=== PATIENT | male | born 1980 | race Caucasian/White ===

== ENCOUNTER 2020-06-02 06:21 | Emergency (ER) | payer OTHER ==
[~2020-06-02] VITALS: Ht 175.3 cm; Wt 68.2 kg
[2020-06-02 06:32] VITALS: BP 149/91
[2020-06-02] MEDS: IV NORMAL SALINE 1,000ML 1,000 ML IV ONE ×3 (06:44→08:06)
[2020-06-02] MEDS: ONDANSETRON PF 4 MG/2 ML VIAL. IVP ONE ×2 (06:44→07:27)
--- NOTE | 2020-06-02 07:11 | PHYS DOC ---
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 Reports his daughter has been hospitalized and local friends and family have been coming over and assisting by providing meals. States a meal was brought for him and his family yesterday evening, and unknown local [employer] restaurant and patient reports being the only one eating the dish that consisted of bread stick and tortellini pasta. Patient ate at approximately 1800 hrs. and approximately 6 hours later at 0030 patient woke up with extreme nausea and abdominal cramping, shortly afterwards he started experiencing sever al episodes of nonbloody nonbilious emesis and looser stools than usual. Patient reports having numerous episodes of both emesis and diarrhea since onset. States he started developing abdominal cramping that was more severe than onset this morning which concerned him prompting him to come in for evaluation. As mention, patient is healthy, no known medical diagnoses, no prior surgeries, does not take any medications on a daily basis. Admits having x1 fever of 101 that was measured several hours ago but has since resolved without intervention Review of Systems Review of Systems Fourteen body systems of review of systems have been reviewed. See HPI for pertinent positives and negative responses, other house all other systems are negative, non-pertinent or non-contributory Current Medications Current Medications Current Medications Medications (Trade) Dose Ordered Sig/Jolene Start Time Stop Time Status Last Admin Dose Admin Ondansetron HCl (Zofran) 4 mg 1X ONCE 06/02/20 06:45 06/02/20 06:46 DC 06/02/20 06:44 4 MG Sodium Chloride 1,000 ml @ 1,000 mls/hr 1X ONCE 06/02/20 06:45 06/02/20 07:44 06/02/20 06:44 1,000 MLS/HR Allergies Allergies Allergies Coded Allergies Type Severity Reaction Last Updated Verified No Known Drug Allergies 06/02/20 No Physical Exam Physical Exam Constitutional: Well developed, well nourished, no acute distress, non-toxic appearance. Clinically dehydrated HENT: Normocephalic, atraumatic, bilateral external ears normal, oropharynx dry, no oral exudates, nose normal. Eyes: PERRLA, EOMI, conjunctiva normal, no discharge. Neck: Normal range of motion, no tenderness, supple, no stridor. Cardiovascular: Tachycardic, sinus rhythm, no murmurs rubs or gallops Lungs & Thorax: Bilateral breath sounds clear to auscultation Abdomen: Bowel sounds normal, soft, grossly tender to palpation with no guarding and no rebound, no masses, no pulsatile masses. Nonsurgical abdomen, no peritoneal signs Skin: Warm, dry, no erythema, no rash. Back: No tenderness, no CVA tenderness. Extremities: No tenderness, no cyanosis, no clubbing, ROM intact, no edema. Neurologic: Alert and oriented X 3, grossly normal motor & sensory function, no focal deficits noted. Psychologic: Affect normal, judgement normal, mood normal. Current Patient Data Vital Signs Vital Signs Date Time Temp Pulse Resp B/P (MAP) Pulse Ox O2 Delivery O2 Flow Rate FiO2 06/02/20 06:32 97.8 107 18 149/91 (110) 96 Room Air Lab Results Laboratory Tests Test 06/02/20 06:45 Sodium Level 142 mmol/L Potassium Level 4.3 mmol/L Chloride Level 105 mmol/L Carbon Dioxide Level 28 mmol/L Anion Gap 9 Blood Urea Nitrogen 17 mg/dL Creatinine 1.0 mg/dL Estimated GFR (Cockcroft-Gault) 84.1 BUN/Creatinine Ratio 17 Glucose Level 148 mg/dL Calcium Level 8.9 mg/dL Total Bilirubin 0.8 mg/dL Aspartate Amino Transf (AST/SGOT) 25 U/L Alanine Aminotransferase (ALT/SGPT) 22 U/L Alkaline Phosphatase 64 U/L Troponin I Quantitative < 0.017 ng/mL Total Protein 6.8 g/dL Albumin 3.7 g/dL Albumin/Globulin Ratio 1.2 Current Medications Medications (Trade) Dose Ordered Sig/Jolene Route PRN Reason Start Time Stop Time Status Last Admin Dose Admin Sodium Chloride 1,000 ml @ 1,000 mls/hr 1X ONCE IV 06/02/20 06:45 06/02/20 07:44 DC 06/02/20 06:44 Ondansetron HCl (Zofran) 4 mg 1X ONCE IVP 06/02/20 06:45 06/02/20 06:46 DC 06/02/20 06:44 Sodium Chloride 1,000 ml @ 1,000 mls/hr 1X ONCE IV 06/02/20 07:15 06/02/20 08:14 DC 06/02/20 07:30 Ondansetron HCl (Zofran) 4 mg 1X ONCE IVP 06/02/20 07:15 06/02/20 07:18 DC 06/02/20 07:27 Dicyclomine HCl (Bentyl) 10 mg 1X ONCE IM 06/02/20 08:00 06/02/20 08:01 DC 06/02/20 08:00 Sodium Chloride 1,000 ml @ 1,000 mls/hr 1X ONCE IV 06/02/20 08:15 06/02/20 09:14 06/02/20 08:06 EKG EKG EKG ordered and interpreted by myself at 0724 hrs. as sinus rhythm at 95 bpm, unremarkable intervals, no axis deviation, no acute ischemic findings, no STEMI Radiology/Procedures Radiology/Procedures [] Heart Score C/O Chest Pain: No Risk Factors: Risk Factors: DM, Current or recent (<one month) smoker, HTN, HLP, family history of CAD, obesity. Risk Scores: Risk Factors: DM, Current or recent (<one month) smoker, HTN, HLP, family history of CAD, obesity. Course & Med Decision Making Course & Med Decision Making Tachycardic otherwise hemodynamically stable patient with history concerning for gastroenteritis. Physical exam nonconcerning and nonemergent findings, nonacute abdomen Comprehensive ER work-up obtained and nonconcerning. IV fluid resuscitation wit h a total of x3 L normal saline administered given gross volume loss from emesis and ongoing diarrhea. Nausea and abdominal pain improved with 8 mg Zofran and 10 mg IM Bentyl Patient reexamined several times throughout ER visit with improvement in symptom s. Feels he is safe to go home to continue supportive care. Educated patient on supportive care practices, he will be going home with Rx Zofran and Bentyl Strict return precautions discussed with good understanding by patient. All questions and concerns addressed prior to ER departure in improved condition [place] Disclaimer Dragon Disclaimer This electronic medical record was generated, in whole or in part, using a voice recognition dictation system. Departure Departure: Impression: Primary Impression: Nausea, vomiting, and diarrhea Disposition: 01 DC HOME SELF CARE/HOMELESS Condition: IMPROVED Referrals: PCP,UNKNOWN (PCP) Patient Instructions: Nausea and Vomiting Additional Instructions: You were seen for nausea, vomiting, and diarrhea. You most likely have a viral gastroenteritis which should resolve in the next few days to a week. You should return to the ED if you develop abdominal pain, fever > 100.3, black/bloody stools, black/bloody vomiting, cannot keep water ingested, or any other new or concerning symptoms. Make sure to drink plenty of fluids and advance your diet slowly. It was a pleasure to take care of you and I wish you the best going forward Scripts Dicyclomine Hcl (DICYCLOMINE HCL) 20 Mg Tablet 1 TAB PO QID for NAUSEA for 10 Days, #40 TAB Prov: PREETHI POSEY DO 06/02/20 Ondansetron Hcl (ZOFRAN) 4 Mg Tablet 1 TAB PO Q6-8HRS PRN for NAUSEA, #30 TAB Prov: PREETHI POSEY DO 06/02/20 PREETHI POSEY DO Jun 02, 2020 07:11
[2020-06-02 07:16] LABS: CALCIUM 8.9 mg/dL (8.5-10.1); GFR 84.1; POTASSIUM 4.3 mmol/L (3.5-5.1)
[2020-06-02 07:21] LABS: ALBUMIN 3.7 g/dL (3.4-5.0); ALBUMIN/GLOBULIN RATIO 1.2 (1.0-1.7); TOTAL BILIRUBIN 0.8 mg/dL (0.2-1.0); TOTAL PROTEIN 6.8 g/dL (6.4-8.2)
[2020-06-02] MEDS: DICYCLOMINE 20 MG/2 ML VIAL. IM ONE (08:00)
--- NOTE | 2020-06-02 08:06 | EKG ---
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
[2020-06-02] MEDS ORDERED: DICY20TA3 PO (08:40)
[2020-06-02] MEDS ORDERED: ONDA4TAB7 PO (08:40)
== END 2020-06-02 08:46 | disposition home or self-care (01) ==
LOC: ER 06:21
DX: R11.2 Nausea with vomiting, unspecified (principal); R19.7 Diarrhea, unspecified; R10.9 Unspecified abdominal pain; R50.9 Fever, unspecified; I10 Essential (primary) hypertension; Z98.890 Other specified postprocedural states
CPT/HCPCS: 36415; 80053; 84484; 93005; 96361; 96372; 96374; 96376; 99284; J0500; J2405; J7030